=== PATIENT | male | born 1940 | race Caucasian/White ===

== ENCOUNTER → 2019-01-21 | Outpatient (CLI) | payer MEDICARE, OTHER ==
[~2019-01-21] MED LIST: AMLO5 PO; BENICAR PO; DIAZ10 PO; HYDACE5 PO; METCAR500 PO; NAPR500EC PO; OMEP20ER PO; OXYACE5T PO; PARI1 PO; PRED10 PO; STOMUL PO; TAMS.4ER PO
== END | disposition home or self-care (01) ==
LOC: LAB SHORT 12:02 → PLD 12:02
DX: C44.01 Basal cell carcinoma of skin of lip (principal)
CPT/HCPCS: 88305

== ENCOUNTER → 2022-10-04 | Outpatient (CLI) | payer MEDICARE, OTHER ==
[2022-10-04 13:54] LABS: PSA, %Free 19.9 %; PSA, Free 0.663 ng/mL
== END ==
LOC: LAB 12:21 → LAB SHORT 12:21
PROVIDERS: Physician Assistant
DX: Z85.46 Personal history of malignant neoplasm of prostate (principal)
CPT/HCPCS: 84153; 84154

== ENCOUNTER → 2022-10-07 | Outpatient (CLI) | payer MEDICARE, OTHER | END | disposition home or self-care (01) | LOC: PLD 08:05 → LAB SHORT 08:05 → LAB 08:05 | DX: B35.1 Tinea unguium (principal); L60.2 Onychogryphosis | CPT/HCPCS: 88305; 88312 ==

== ENCOUNTER 2023-11-08 19:37 | Inpatient (IN) | payer MEDICARE, OTHER ==
[~2023-11-08] VITALS: Ht 172.7 cm; Wt 70.3 kg
[2023-11-08 20:16] LABS: BASOPHILS ABSOLUTE AUTO 0.03 K/mm3 (0.00-0.23); BASOPHILS PERCENT AUTO 0 % (0-2); EOSINOPHILS PERCENT AUTO 0 % (0-6); Hematocrit 45.6 % (37.0-53.0); Hemoglobin 15.5 g/dL (13.5-17.5); IMMATURE GRAN ABSOLUTE AUTO 0.04 K/mm3 (0.00-0.10); IMMATURE GRAN PERCENT AUTO 0 % (0-1); LYMPHOCYTES ABSOLUTE AUTO 0.93 K/mm3 (0.84-5.20); LYMPHOCYTES PERCENT AUTO 9 % (21-46); MONOCYTES ABSOLUTE AUTO 0.98 K/mm3 (0.16-1.47); MONOCYTES PERCENT AUTO 9 % (4-13); Mean Corpuscular HGB 30.8 pg (26.0-34.0); Mean Corpuscular Volume 91 fL (80-100); Mean Platelet Volume 10.1 fL (9.1-12.4); NEUTROPHILS ABSOLUTE AUTO 8.91 K/mm3 (1.96-9.15); NEUTROPHILS PERCENT AUTO 82 % (41-73); Platelet Count 186 K/mm3 (150-400); RDW Coefficient Variation 14.6 % (11.7-14.2); RDW Standard Deviation 48.5 fL (35.1-46.3); Red Blood Cell Count 5.03 M/mm3 (4.30-5.90); White Blood Cell Count 10.89 K/mm3 (4.00-11.30)
[2023-11-08 20:34] LABS: Influenza A, PCR NEGATIVE (NEGATIVE); Influenza B, PCR NEGATIVE (NEGATIVE); Resp Syncytial Virus, PCR NEGATIVE (NEGATIVE)
[2023-11-08 20:48] LABS: Albumin, Blood 3.4 g/dL (3.4-5.0); Albumin/Globulin Ratio 0.8 (0.8-1.8); Bilirubin, Total 1.4 mg/dL (0.1-1.0); Bun/Creatinine Ratio 18.7 (12.0-20.0); Calcium, Blood 9.2 mg/dL (8.5-10.1); Creatinine, Blood 1.34 mg/dL (0.60-1.20); Potassium, Blood 4.7 mmol/L (3.5-5.5); Total Protein, Blood 7.4 g/dL (6.4-8.2)
[2023-11-08 20:58] LABS: SARS-Cov-2 (COVID-19) PCR, MMC POSITIVE (NEGATIVE)
[2023-11-08] MEDS ORDERED: Dexamethasone Sod Phos 10 MG/ML 1ML VIAL IV ONE (22:55)
[2023-11-08] MEDS ORDERED: Azithromycin 500 MG in NS 250 ML IV ONE (22:55)
[2023-11-08] MEDS ORDERED: CefTRIAXone Sodium 1,000 MG in NS 100 ML IV ONE (22:55)
[2023-11-09] VITALS (9 sets, daily range): BP systolic 88–123; BP diastolic 62–83
[2023-11-09] MEDS ORDERED: FLU VACC TS2024-25(6MOS UP)/PF 45 MCG/0.5 ML SYRINGE IM ONE (00:20)
[2023-11-09] MEDS ORDERED: Ondansetron HCl 2 MG / ML 2ML Vial IV PRN (00:25)
[2023-11-09] MEDS ORDERED: Acetaminophen 325 MG TABLET PO PRN (00:25)
[2023-11-09] MEDS ORDERED: Remdesivir (EUA) 200 MG in NS 250 ML IV ONE (00:30)
--- NOTE | 2023-11-09 01:30 | NUR ---
TRANSFER TO ICU PT ARRIVED TO ICU FROM MEDICAL FLOOR AFTER RAPID RESPONSE WAS CALLED FOR PT ON MEDICAL FLOOR. UPON ARRIVAL PT LETHARGIC, BUT RESPONDING TO PAIN AND SAYING "OW" AND ABLE TO FOLLOW COMMANDS SUCH HOLDING STILL FOR CVC PLACEMENT. PT'S FACE PURPLE/BLUE IN COLOR UPON ARRIVAL TO ICU. PT CONNECTED TO ZOLL, HR NOTED 100s. BP DIFFICULT TO OBTAIN D/T PT SHIVERING AND MOVEMENT. PIV TO LFA INFILTRATED, HOSPITALIST INSERTED CVC TO RIJ. LEVOPHED GTT INFUSING UPON ARRIVAL TO ICU, BUT PUT ON SB WHILE AWAITING CVC PLACEMENT D/T IV INFILTRATION. LEVOPHED RESTARTED IMMEDIATELY UPON CVC INSERTION AND XRAY CONFIRMATION, SEE FLOWSHEET. PT ON 6 L N/C UPON ARRIVAL TO ICU AND PLACED ON 15 L NONREBREATER. AFTER CVC PLACMENT TO RIJ AND PT ON 15 L NONBREATHER, PT'S COLOR OF FACE IMPROVED TO NORMAL TONE. PER HOSPITALIST'S VERBAL ORDER AT BEDSIDE, 1 AMP OF SODIUM BICARB GIVEN IVP AND 1 G OF CALCIUM CHLORIDE GIVEN SLOWLY OVER 10 MINUTES IVP. CVC TO RIJ OOZING SIGNIFICANTLY, SUTURES REINFORCED BY HOSPITALIST AND DRESSING CHANGED. MANUAL PRESSURE HELD CUMULATIVELY FOR 25 MINUTES. HOSPITALIST MADE AWARE OF LFA IV INFILTRATION, SC REGITINE INJECTED AROUND SITE AND PICTURES DOCUMENTED IN CHART. PT WENT TO CT FOR CT/PE STUDY AROUND 0115 AND TOLERATED TRANSPORT WELL. WHEN PT ARRIVED TO ICU THERE WAS CONCERN IF PT NEEDED TO BE INTUBATED. RSI MEDICATIONS PREPARED BY THIS RN BY HOSPITALIST'S VERBAL ORDER; 15 MG ETOMIDATE, 2 MG VERSED, 80 MG ROCURONIUM. PT ENDED UP NOT NEEDING TO BE INTUBATED SO RSI MEDICATIONS WASTED WITH ZULEIMA RN.
[2023-11-09] MEDS ORDERED: Sodium Bicarb 8.4% 50 mEq Syringe IV ONE (03:56)
[2023-11-09] MEDS ORDERED: Rocuronium Bromide 10 MG/ML 5ML Injection IV ONE (03:56)
[2023-11-09] MEDS ORDERED: Midazolam HCl 1MG / ML 2ML Vial IV ONE (03:56)
[2023-11-09] MEDS ORDERED: Calcium Chloride 10% 100 MG/ML 10ML Vial IV ONE (03:56)
[2023-11-09 05:38] LABS: BASOPHILS ABSOLUTE AUTO 0.02 K/mm3 (0.00-0.23); BASOPHILS PERCENT AUTO 0 % (0-2); EOSINOPHILS PERCENT AUTO 0 % (0-6); Hematocrit 43.8 % (37.0-53.0); Hemoglobin 14.5 g/dL (13.5-17.5); IMMATURE GRAN ABSOLUTE AUTO 0.02 K/mm3 (0.00-0.10); IMMATURE GRAN PERCENT AUTO 0 % (0-1); LYMPHOCYTES ABSOLUTE AUTO 0.52 K/mm3 (0.84-5.20); LYMPHOCYTES PERCENT AUTO 7 % (21-46); MONOCYTES ABSOLUTE AUTO 0.21 K/mm3 (0.16-1.47); MONOCYTES PERCENT AUTO 3 % (4-13); Mean Corpuscular HGB 30.5 pg (26.0-34.0); Mean Corpuscular HGB Conc 33.1 g/dL (31.5-36.5); Mean Corpuscular Volume 92 fL (80-100); Mean Platelet Volume 10.3 fL (9.1-12.4); NEUTROPHILS ABSOLUTE AUTO 6.76 K/mm3 (1.96-9.15); NEUTROPHILS PERCENT AUTO 90 % (41-73); Platelet Count 152 K/mm3 (150-400); RDW Coefficient Variation 14.6 % (11.7-14.2); RDW Standard Deviation 50.3 fL (35.1-46.3); Red Blood Cell Count 4.75 M/mm3 (4.30-5.90); White Blood Cell Count 7.53 K/mm3 (4.00-11.30)
[2023-11-09 06:12] LABS: Albumin, Blood 2.9 g/dL (3.4-5.0); Albumin/Globulin Ratio 0.8 (0.8-1.8); Bilirubin, Total 0.7 mg/dL (0.1-1.0); Bun/Creatinine Ratio 18.9 (12.0-20.0); Calcium, Blood 8.8 mg/dL (8.5-10.1); Creatinine, Blood 1.32 mg/dL (0.60-1.20); Globulin, Blood 3.7 g/dL (2.2-4.0); Potassium, Blood 4.7 mmol/L (3.5-5.5); Total Protein, Blood 6.6 g/dL (6.4-8.2)
[2023-11-09] MEDS ORDERED: Albuterol 2.5 MG/3 ML VIAL INH PRN (07:50)
[2023-11-09] MEDS ORDERED: dexAMETHasone 4 MG TAB PO SCH (09:00)
[2023-11-09] MEDS ORDERED: Metoprolol Tartrate 25 MG Tab PO SCH (09:00)
[2023-11-09] MEDS ORDERED: Lactobacil 2-S.Thermo-Bifido 1 1 Cap PO SCH (09:00)
[2023-11-09] MEDS ORDERED: Apixaban 5 MG Tab PO SCH (09:00)
--- NOTE | 2023-11-09 11:05 | NUR ---
NOTE: RECEIVED A CALL FROM PCU INSURANCE ADMINISTRATIVE ASSISTANT, ALEX AT AROUND 1056. PER MARK PATIENT HAD 8 BEATS RUN OF V-TACH. THIS RN ASSESS THE PATIENT, DENIES CP/PRESSURE, DIZZINESS, N/V BUT REPORTS SLIGHT SOB RESTING IN BED. VITALS SIGNS TAKEN; TEMP 97.2, RESP 20 BREATHS/MIN, AFIB HR 101 BPM, 92% ON 2L NC. NOTIFIED DR. MCKEON REGARDING THIS CONCERNED. NO NEW ORDERS AT THIS TIME.
--- NOTE | 2023-11-09 11:25 | NUR ---
NOTE: RECEIVED A CALL FROM PCU ALARM INSTALLER, ALEX AT 1119. PER MARK PATIENT HAD 5 BEATS RUN OF V-TACH. THIS RN ASSESS PATIENT, CONTINUES TO REPORTS NO CP/PRESSURE OR DIZZINESS AT THIS TIME. NOTIFIED DR. MCKEON, RECEIVED ORDER TO DO REPEAT LAB FOR BMP, MAG AND PHOS NOW.
[2023-11-09 12:43] LABS: Bun/Creatinine Ratio 22.6 (12.0-20.0); Calcium, Blood 8.7 mg/dL (8.5-10.1); Creatinine, Blood 1.33 mg/dL (0.60-1.20); Magnesium, Blood 1.8 mg/dL (1.6-2.4); Phosphorus, Blood 2.8 mg/dL (2.5-4.9); Potassium, Blood 4.5 mmol/L (3.5-5.5)
--- NOTE | 2023-11-09 18:06 | NUR ---
SHIFT SUMMARY: PATIENT A/OX3, PLEASANT AND COOPERATIVE c CARE. PATIENT DENIES CP/PRESSURE, N/V AND DIZZINESS. PATIENT HAD A COUPLE EPISODE OF VTACH (SEE AM NOTE), NO EVENTS SINCE 1119, AFIB HR IN THE LOW 100'S BPM. PATIENT STARTED ON ELIQUIS THIS AM PER ORDER. ECHO'S DONE THIS PM c RESULT. PATIENT REPORTS BREATHING HAS IMPROVED, STILL ON 2L O2 SATTING 90-94%. PATIENT HAS GREAT APPETITE, CONTINENT OF BOWEL/BLADDER, AMBULATES TO BATHROOM INDEPENDENTLY T/O SHIFT. PATIENT USES CALL LIGHT APPROPRIATELY AND ABLE TO MAKE NEEDS KNOWN. CALL LIGHT IN REACH.
[2023-11-09] MEDS ORDERED: CefTRIAXone Sodium 1,000 MG in NS 100 ML IV SCH (21:00)
[2023-11-09] MEDS ORDERED: Azithromycin 500 MG in NS 250 ML IV SCH (21:00)
[2023-11-09] MEDS ORDERED: NS 1,000 ML IV ONE (23:14)
[2023-11-09 23:24] LABS: Base Excess Venous -9.6 mmol/L; Bicarbonate Venous 16.7 mmol/L (24.0-30.0); PCO2 Venous 35.3 mmHg (38-42); pH Blood Venous 7.29 (7.34-7.37)
[2023-11-09 23:27] LABS: BASOPHILS ABSOLUTE AUTO 0.02 K/mm3 (0.00-0.23); BASOPHILS PERCENT AUTO 0 % (0-2); EOSINOPHILS PERCENT AUTO 0 % (0-6); Hemoglobin 14.7 g/dL (13.5-17.5); IMMATURE GRAN ABSOLUTE AUTO 0.05 K/mm3 (0.00-0.10); IMMATURE GRAN PERCENT AUTO 0 % (0-1); LYMPHOCYTES ABSOLUTE AUTO 1.58 K/mm3 (0.84-5.20); LYMPHOCYTES PERCENT AUTO 14 % (21-46); MONOCYTES ABSOLUTE AUTO 0.96 K/mm3 (0.16-1.47); MONOCYTES PERCENT AUTO 8 % (4-13); Mean Corpuscular HGB 30.5 pg (26.0-34.0); Mean Corpuscular HGB Conc 32.7 g/dL (31.5-36.5); Mean Corpuscular Volume 93 fL (80-100); Mean Platelet Volume 10.5 fL (9.1-12.4); NEUTROPHILS ABSOLUTE AUTO 8.81 K/mm3 (1.96-9.15); NEUTROPHILS PERCENT AUTO 77 % (41-73); Platelet Count 173 K/mm3 (150-400); RDW Coefficient Variation 14.8 % (11.7-14.2); RDW Standard Deviation 51.4 fL (35.1-46.3); Red Blood Cell Count 4.82 M/mm3 (4.30-5.90); White Blood Cell Count 11.42 K/mm3 (4.00-11.30)
[2023-11-09 23:47] LABS: Albumin, Blood 2.8 g/dL (3.4-5.0); Albumin/Globulin Ratio 0.8 (0.8-1.8); Bilirubin, Total 0.3 mg/dL (0.1-1.0); Bun/Creatinine Ratio 26.8 (12.0-20.0); Calcium, Blood 7.7 mg/dL (8.5-10.1); Creatinine, Blood 1.53 mg/dL (0.60-1.20); Globulin, Blood 3.5 g/dL (2.2-4.0); Potassium, Blood 4.2 mmol/L (3.5-5.5); Total Protein, Blood 6.3 g/dL (6.4-8.2)
[2023-11-09] MEDS ORDERED: Phentolamine Mesylate 5 MG/2 ML Vial SC ONE (23:50)
[2023-11-10] VITALS (51 sets, daily range): BP systolic 77–143; BP diastolic 29–96
[2023-11-10] MEDS ORDERED: Sodium Bicarb 8.4% Inj 100 MEQ in Sodium Chloride 0.45% 1,000 ML IV SCH (00:15)
[2023-11-10] MEDS ORDERED: Heparin Sodium,Porcine/0.5 NS 500 ML IV SCH (00:20)
[2023-11-10 00:51] LABS: International Normalized Ratio 2.1; Prothrombin Time Results 21.3 Sec (9.7-11.5)
[2023-11-10 02:55] LABS: BASOPHILS ABSOLUTE AUTO 0.02 K/mm3 (0.00-0.23); BASOPHILS PERCENT AUTO 0 % (0-2); EOSINOPHILS PERCENT AUTO 0 % (0-6); Hematocrit 43.7 % (37.0-53.0); Hemoglobin 14.7 g/dL (13.5-17.5); IMMATURE GRAN PERCENT AUTO 1 % (0-1); LYMPHOCYTES ABSOLUTE AUTO 1.07 K/mm3 (0.84-5.20); LYMPHOCYTES PERCENT AUTO 7 % (21-46); MONOCYTES ABSOLUTE AUTO 1.15 K/mm3 (0.16-1.47); MONOCYTES PERCENT AUTO 8 % (4-13); Mean Corpuscular HGB 30.9 pg (26.0-34.0); Mean Corpuscular HGB Conc 33.6 g/dL (31.5-36.5); Mean Corpuscular Volume 92 fL (80-100); Mean Platelet Volume 10.3 fL (9.1-12.4); NEUTROPHILS ABSOLUTE AUTO 12.48 K/mm3 (1.96-9.15); NEUTROPHILS PERCENT AUTO 84 % (41-73); Platelet Count 176 K/mm3 (150-400); RDW Coefficient Variation 14.8 % (11.7-14.2); RDW Standard Deviation 50.9 fL (35.1-46.3); Red Blood Cell Count 4.75 M/mm3 (4.30-5.90); White Blood Cell Count 14.82 K/mm3 (4.00-11.30)
[2023-11-10 03:10] LABS: Bun/Creatinine Ratio 28.5 (12.0-20.0); Calcium, Blood 8.8 mg/dL (8.5-10.1); Creatinine, Blood 1.58 mg/dL (0.60-1.20); Potassium, Blood 4.6 mmol/L (3.5-5.5)
--- NOTE | 2023-11-10 03:43 | NUR ---
PT UPDATE PT PLACED ON CPAP PER HOSPITALIST ORDER AND PT TOLERATING WELL, O2 SATS > 90%. LUNG GATES CLEAR/DIM. CARDIAC MONITORING REFLECTS AFIB, HR 90s-100s. PT'S LEVOPHED ON SB, MAP > 65. PT'S SON AT [facility], HAS BEEN CONTINUOUSLY UPDATED. PT A/O x3, NEEDING REORIENTATION OF WHAT HAPPENED. CVC TO TNJ SL AT THIS TIME. L ARM ELEVATED WITH PILLOW.
[2023-11-10] MEDS ORDERED: NS 1,000 ML IV SCH (05:20)
--- NOTE | 2023-11-10 05:21 | NUR ---
SHIFT SUMMARY NO ACUTE CHANGES SINCE PREVIOUS NURSE NOTE. PT A/O x3, NEEDING REORIENTATION OF SITUATION. SON REMAINED AT BEDSIDE AFTER PT'S ARRIVAL TO ICU. CPAP 10, FiO2 50%, PT TOLERATING WELL. O2 SATS > 90%. CARDIAC MONITORING REFLECTS AFIB, HR 100s AT THIS TIME. LEVOPHED REMAINS ON SB, MAP > 65. CVC TO [facility] SL.
--- NOTE | 2023-11-10 07:54 | NUR ---
RAPID RESPONSE [phone] ON 11/09/23 PLEASE SEE A DETAILED DESCRIPTION OF EVENTS LEADING UP TO SECURITY OPERATIONS MANAGER AND DURING SECURITY OPERATIONS MANAGER IN THE SECURITY OPERATIONS MANAGER INITIATION INTERVENTION FLOWSHEET.
--- NOTE | 2023-11-10 09:47 | NUR ---
AM NOTE... ASSUMED CARE OF PT AT 0700, PT IS A&Ox3 WITH SOME FORGETFULNESS. PT WAS ON CPAP AT 10 AND 50% WITH O2 SATS>95% L/S CLEAR AND DIM T/O. PT WAS SWITCHED OVER TO NC AT 5L WITH O2 SATS>92%. PT'S RR IS EVEN BUT SHALLOW AT 18-22. PT IS IN AFIB IN THE 100'S BP IS STABLE WITH MAPS>65. TRACE EDEMA IS NOTED TO HIS BLE. BT PRESENT AND HYPOACTIVE, ABD IS SLIGHLTY DISTENTED BUT SOFT AND NONTENDER TO PALPATION. DURING THIS ASSESSMENT THIS RN WAS HELPING TO REPOSITION THE PT WHEN THE PT'S HEAD WAS LAYING BACK THE PT'S WHOLE HEAD TURNED DUSKY RED AND HIS EARS TURND DARK PURPLE, PT WAS SOB WITH LABORED BREATHS, O2 SATS DID NOT DROP DURING THIS TIME, PT'S HR INCREASED FROM THE LOW 100'S TO 120'S. PT'S HEAD WAS TURNED BACK UP AND THE PT'S COLOR RETURNED TO NORMAL. WILL CONTINUE TO MONITOR.
[2023-11-10] MEDS ORDERED: Remdesivir (EUA) 100 MG in NS 250 ML IV SCH (12:00)
--- NOTE | 2023-11-10 16:24 | NUR ---
Spiritual care visit conducted. Patient is lying in bed and alert, his son is Calixto Thorpe is bedside. The patient talks at length about his health history, his Orthodox art, his family and his hopes that he has turned a corner for the better. While we are talking the patient's dtr called. The patient talked with her until a procedure was needed to be performed. So I talked with the Calixto Thorpe and he shares personal stories and struggles. I normalized his experience, reinforced helpful attitudes and practices and provided therapeutic listening and prayer.
--- NOTE | 2023-11-10 17:49 | NUR ---
TRANSFER NOTE PT ARRIVE TO ROOM @ APPROX 1646. PT SELF TRANSFERED FROM ICU BED TO PCU BED, GAIT STEADY, DENIED ANY DIZZINESS. PT ALERT AND ORIENTED X 4, DOES NOT REMEMBER TO CALL SO BED ALARM AND CHAIR ALARM ARE IN PLACE, PT HARD OF HEARING AND HAS DIFFICULTY WITH VISION. LUNGS SOUND DIM BLL, SPO2 >94% ON RA, NEEDED SOME OXYGEN SUPPORT OF 2L NC WHILE EATING, PT WILLING TO WEAR CPAP AT NIGHT IF NEEDED. PT WALKED TO BATHROOM SBA WITH HAND CLIPPER, PT REPORTED BM WHILE IN BATHROOM. BLADDER SCAN COMPLETED FOR HX OF BPH, 170 IN BLADDER. INFALTRATON OF LEVOPHED IN RIGHT AC IS SOFT, BRUSIED, LOOKS IMPROVED FROM CHARTED PHOTOS, BLE EDEMA 2+. SON IS AT BEDSIDE. BED LOWEST POSTION, CALL LIGHT IN REACH, AWAITING TO GIVE REPORT TO ONCOMMING RN.
[2023-11-10] MEDS ORDERED: Ticagrelor 90 MG TABLET PO SCH (21:00)
--- NOTE | 2023-11-10 22:00 | NUR ---
SHIFT UPDATE: Patient called this at 2145 RN saying he didn't "feel well". When prompted to explain further, he said he feels the way he did last night prior to the rapid response and was having a hard time breathing. VSS at this time- BP 108/63 and O2 95% on 2LNC. RT notified, placed patient on the CPAP at this time as ordered- PRN. Patient appears to be apprehensive of the medical plan at this time due to his experience last night, education reinforced. Some anxiety may be involved, will encourage the patient to rest and let the CPAP work while promoting a restful environment.
--- NOTE | 2023-11-10 23:09 | NUR ---
SHIFT UPDATE- Patient back on the nasal cannula at this time- informed this RN that he feels less SHOB and the noise from the CPAP is keeping him awake. CPAP placed on standby at this time in case patient's condition changes again. Vital signs continue to be stable. currently on 2LNC.
[2023-11-10] MEDS ORDERED: Melatonin 3 MG Tab PO PRN (23:31)
[2023-11-10] MEDS ORDERED: HyDROXyzine HCl 25 MG Tab PO PRN (23:32)
[2023-11-11 04:12] VITALS: BP 115/82
[2023-11-11 04:39] LABS: BASOPHILS ABSOLUTE AUTO 0.02 K/mm3 (0.00-0.23); BASOPHILS PERCENT AUTO 0 % (0-2); EOSINOPHILS PERCENT AUTO 0 % (0-6); Hematocrit 44.3 % (37.0-53.0); IMMATURE GRAN ABSOLUTE AUTO 0.16 K/mm3 (0.00-0.10); IMMATURE GRAN PERCENT AUTO 1 % (0-1); LYMPHOCYTES PERCENT AUTO 7 % (21-46); MONOCYTES ABSOLUTE AUTO 0.74 K/mm3 (0.16-1.47); MONOCYTES PERCENT AUTO 4 % (4-13); Mean Corpuscular HGB 30.9 pg (26.0-34.0); Mean Corpuscular HGB Conc 33.9 g/dL (31.5-36.5); Mean Corpuscular Volume 91 fL (80-100); Mean Platelet Volume 10.7 fL (9.1-12.4); NEUTROPHILS ABSOLUTE AUTO 16.11 K/mm3 (1.96-9.15); NEUTROPHILS PERCENT AUTO 88 % (41-73); Platelet Count 189 K/mm3 (150-400); RDW Coefficient Variation 14.9 % (11.7-14.2); RDW Standard Deviation 50.4 fL (35.1-46.3); Red Blood Cell Count 4.85 M/mm3 (4.30-5.90); White Blood Cell Count 18.23 K/mm3 (4.00-11.30)
--- NOTE | 2023-11-11 04:56 | NUR ---
END OF SHIFT SUMMARY: Patient required the CPAP for a short time following antibiotic administration, noteable pleural effusions on XR the night prior, MD mentioned possibly starting diuresis once the patient's BP stabilizes. BP stable overnight. Was able to wean back down to 2LNC. Currently resting comfortably in bed. Controlled AFIB on tele all night in the 90-100s. Denies pain, getting OOB with SBA. Occasionally forgetful and some anxiety when he gets SHob, bed alarm activated. On remdesivir dose 02/13, antibiotics for RLL PNA. ERIC powerglide WNL. Prior LFA IV infiltration improved, bruising present due to being on eliquis. PRN atarax effective for anxiety overnight. Patient may benefit from a stronger sleep aid and something PRN for cough, otherwise he states he is beginning to feel better.
[2023-11-11 06:43] LABS: Albumin/Globulin Ratio 0.8 (0.8-1.8); Bilirubin, Total 0.4 mg/dL (0.1-1.0); Bun/Creatinine Ratio 30.1 (12.0-20.0); Calcium, Blood 9.1 mg/dL (8.5-10.1); Creatinine, Blood 1.63 mg/dL (0.60-1.20); Globulin, Blood 3.7 g/dL (2.2-4.0); Potassium, Blood 4.9 mmol/L (3.5-5.5); Total Protein, Blood 6.7 g/dL (6.4-8.2)
[2023-11-11 11:44] VITALS: BP 130/80
--- NOTE | 2023-11-11 12:16 | NUR ---
AT BEDSIDE: DR. VELARDE ROUNDED ON PATIENT AND STATED WE WILL CONTINUE TO AND POSSIBLY FRIDAY DISCHARGE. NOTIFIED ABOUT SCROTOM PAIN PATIENT WAS HAVING, HE LOOKED AT IT AND ORDERED A CONSULT FOR SURGICAL. PT FELT NAUSEAUS WHEN LAYING ON BACK AND DR. VELARDE ORDERED ZOFRAN TO BE GIVEN.
[2023-11-11] MEDS ORDERED: Flonase 0.05% N16 GM (13:56)
[2023-11-11] MEDS ORDERED: Ketoconazole120 ML TOP (13:57)
[2023-11-11 16:41] VITALS: BP 110/68
--- NOTE | 2023-11-11 16:46 | NUR ---
END OF SHIFT SUMMARY: PT IS A&0X4 AND COOPERATIVE WITH HIS CARE. IS ODD AND ANSWERS QUESTIONS APPROPRIATELY BUT DOES ANSWER ALMOST HESITANTLY OR WITH A QUESTIONING TONE. SATTING >90% ON ROOM AIR. ON TELE SHOWING AFIB WITH RATE BEETWEEN 100-112. HAD A CONCERN ABOUT HIS RIGHT SCROTOM WITH 7/10 PAIN, DOCTOR VELARDE WAS NOTIFIED AND A CONSULT WAS PLACED TO SURGICAL. SURGICAL CAME AND PER NOTE NO SURGEY WILL BE NEEDED. PT DENIED NEEDING ANY PAIN MEDICATIONS. DID GET ZOFRAN AFTER LAYING FLAT AND AFTER DR. VELARDE WAS PUTTING PRESSURE ON HIS SCROTOM. PT REPORTED HE FELT LIKE HE WAS GOING TO THROW UP AND WAS BETTER AFTER BEING GIVEN ZOFRAN. SON CAME TO VISIT AND PATIENT HAS JUST BEEN WALKING IN ROOM AND CHATTING WITH HIM. WILL REPORT TO ONCOMING CHAIN OFFBEARER.
[2023-11-11 20:34] VITALS: BP 104/74
[2023-11-12 05:01] VITALS: BP 105/71
--- NOTE | 2023-11-12 05:45 | NUR ---
SHIFT SUMMARY RECEIVED PT FROM U 0030. PT ON RA, NO RESPIRATORY DISTRESS NOTED. TELE SHOWING AFIB. PT SLEPT MOST OF THE NIGHT. ORIENTED TO ROOM, CALL LIGHT. SIDERAILS UP X 2, BED ALARM ON UNTIL PT MORE AWAKE. PT SOMEWHAT ANXIOUS, BUT COOPERATIVE WITH CARE. POWERGLIDE FLUSHES EASILY, BUT THERE IS NO BLOOD RETURN.
[2023-11-12 05:59] LABS: BASOPHILS ABSOLUTE AUTO 0.02 K/mm3 (0.00-0.23); BASOPHILS PERCENT AUTO 0 % (0-2); EOSINOPHILS PERCENT AUTO 0 % (0-6); Hematocrit 44.8 % (37.0-53.0); Hemoglobin 14.6 g/dL (13.5-17.5); IMMATURE GRAN ABSOLUTE AUTO 0.12 K/mm3 (0.00-0.10); IMMATURE GRAN PERCENT AUTO 1 % (0-1); LYMPHOCYTES ABSOLUTE AUTO 1.27 K/mm3 (0.84-5.20); LYMPHOCYTES PERCENT AUTO 9 % (21-46); MONOCYTES ABSOLUTE AUTO 0.77 K/mm3 (0.16-1.47); MONOCYTES PERCENT AUTO 5 % (4-13); Mean Corpuscular HGB 30.1 pg (26.0-34.0); Mean Corpuscular HGB Conc 32.6 g/dL (31.5-36.5); Mean Corpuscular Volume 92 fL (80-100); NEUTROPHILS ABSOLUTE AUTO 12.71 K/mm3 (1.96-9.15); NEUTROPHILS PERCENT AUTO 85 % (41-73); Platelet Count 189 K/mm3 (150-400); RDW Coefficient Variation 14.9 % (11.7-14.2); RDW Standard Deviation 50.8 fL (35.1-46.3); Red Blood Cell Count 4.85 M/mm3 (4.30-5.90); White Blood Cell Count 14.89 K/mm3 (4.00-11.30)
[2023-11-12 06:49] LABS: Albumin, Blood 2.9 g/dL (3.4-5.0); Albumin/Globulin Ratio 0.9 (0.8-1.8); Bilirubin, Total 0.4 mg/dL (0.1-1.0); Bun/Creatinine Ratio 33.1 (12.0-20.0); Calcium, Blood 8.9 mg/dL (8.5-10.1); Creatinine, Blood 1.48 mg/dL (0.60-1.20); Globulin, Blood 3.4 g/dL (2.2-4.0); Potassium, Blood 4.7 mmol/L (3.5-5.5); Total Protein, Blood 6.3 g/dL (6.4-8.2)
[2023-11-12 08:27] VITALS: BP 107/81
[2023-11-12] MEDS ORDERED: DEXA2 PO (14:27)
[2023-11-12] MEDS ORDERED: TICA90TA PO (14:28)
[2023-11-12] MEDS ORDERED: METO25 PO (14:28)
[2023-11-12] MEDS ORDERED: ALBU90OI6 INH (14:29)
[2023-11-12] MEDS ORDERED: CEFD300 PO (14:29)
--- NOTE | 2023-11-12 15:34 | NUR ---
DISCHARGE: PT D/C @4842 INDEPENDENTLY WITH FAMILY. MEDICATIONS FAXED TO [facility]. TELE SENT BACK. POWERGLIDE REMOVED BY THIS RN W/O COMPLICATIONS. PT AWARE TO MAKE FOLLOW-UP APPOINTMENT WITH PCP WITHIN 1-2 WEEKS. NEW MEDICATIONS DISCUSSED IN DETAIL WITH PT AND FAMILY. NO QUESTIONS AT TIME OF D/C.
--- NOTE | 2023-11-12 17:38 | NUR ---
SPOKE WITH DR. VELARDE ABOUT CHANGING PT DISCHARGE MEDICATIONS. PT TO STOP BRILINTA AND START ELIQUS 5MG BID. MEDICAION CALLED INTO PHARMACY. CALLED PT SON WHO HELPS PT WITH MEDICATIONS AND UPDATED WITH STOP AND START OF NEW MEDICATION.
== END 2023-11-12 15:24 | disposition home or self-care (01) | DRG 177 ==
LOC: ER 19:37 → MEDS 19:38 → ICUE 11-09 14:18 → PCU 11-09 14:18 → MEDS 11-09 22:36 → ICUE 11-09 23:36 → PCU 11-10 17:01 → MEDS 11-12 00:28 → ENPENDDIS 11-12 13:30 → MEDS 11-12 15:24
PROVIDERS: Emergency Medicine; Internal Medicine; ADMIT Student in an Organized Health Care Education/Training Program
PROC: XW033E5 Introduction of Remdesivir Anti-infective into Peripheral Vein, Percutaneous Approach, New Technology Group 5 (ICD-10-PCS; 2023-11-09)
PROC: 3E0333Z Introduction of Anti-inflammatory into Peripheral Vein, Percutaneous Approach (ICD-10-PCS; 2023-11-09)
PROC: 5A09357 Assistance with Respiratory Ventilation, Less than 24 Consecutive Hours, Continuous Positive Airway Pressure (ICD-10-PCS; 2023-11-09)
PROC: 3E033XZ Introduction of Vasopressor into Peripheral Vein, Percutaneous Approach (ICD-10-PCS; 2023-11-09)
PROC: 02HV33Z Insertion of Infusion Device into Superior Vena Cava, Percutaneous Approach (ICD-10-PCS; principal; 2023-11-10)
DX: U07.1 COVID-19 (principal); J12.82 Pneumonia due to coronavirus disease 2019; J96.01 Acute respiratory failure with hypoxia; I48.91 Unspecified atrial fibrillation; K40.90 Unilateral inguinal hernia, without obstruction or gangrene, not specified as recurrent; I95.9 Hypotension, unspecified; N40.0 Benign prostatic hyperplasia without lower urinary tract symptoms; M54.9 Dorsalgia, unspecified; G89.29 Other chronic pain; N18.31 Chronic kidney disease, stage 3a; K21.9 Gastro-esophageal reflux disease without esophagitis; I12.9 Hypertensive chronic kidney disease with stage 1 through stage 4 chronic kidney disease, or unspecified chronic kidney disease; M19.90 Unspecified osteoarthritis, unspecified site; Z85.038 Personal history of other malignant neoplasm of large intestine; Z85.46 Personal history of malignant neoplasm of prostate; Z88.8 Allergy status to other drugs, medicaments and biological substances; Z79.899 Other long term (current) drug therapy; Z79.891 Long term (current) use of opiate analgesic; Z98.890 Other specified postprocedural states; Z90.49 Acquired absence of other specified parts of digestive tract; Z89.111 Acquired absence of right hand
CPT/HCPCS: 0241U; 36415; 36556; 71045; 71046; 71260; 80048; 80053; 82330; 82803; 82947; 83605; 83735; 83880; 84100; 84145; 84484; 85025; 85610; 85730; 87040; 87070; 87205; 93005; 93010; 93306; 94640; 94660; 94664; 94760; 94762; 96365; 96366-59; 96368; 96375; 96375-59; 99285-25; A9270; C1751; G0378; J0248; J0456; J0696; J1100; J1644; J2250; J2405; J2760; J7030; J7050; Q9967

== ENCOUNTER 2024-01-19 18:21 | Emergency (ER) | payer MEDICARE, OTHER ==
[~2024-01-19] VITALS: Ht 172.7 cm; Wt 68.0 kg
[~2024-01-19 18:21] MED LIST changes: +ALBU90OI6 INH; +CEFD300 PO; +DEXA2 PO; +Flonase 0.05% N16 GM; +Ketoconazole120 ML TOP; +METO25 PO; +TICA90TA PO
[2024-01-19 19:50] LABS: BASOPHILS ABSOLUTE AUTO 0.02 K/mm3 (0.00-0.23); BASOPHILS PERCENT AUTO 0 % (0-2); EOSINOPHILS PERCENT AUTO 0 % (0-6); Hematocrit 48.5 % (37.0-53.0); Hemoglobin 16.4 g/dL (13.5-17.5); IMMATURE GRAN ABSOLUTE AUTO 0.06 K/mm3 (0.00-0.10); IMMATURE GRAN PERCENT AUTO 1 % (0-1); LYMPHOCYTES ABSOLUTE AUTO 0.84 K/mm3 (0.84-5.20); LYMPHOCYTES PERCENT AUTO 16 % (21-46); MONOCYTES ABSOLUTE AUTO 0.92 K/mm3 (0.16-1.47); MONOCYTES PERCENT AUTO 17 % (4-13); Mean Corpuscular HGB 31.1 pg (26.0-34.0); Mean Corpuscular HGB Conc 33.8 g/dL (31.5-36.5); Mean Corpuscular Volume 92 fL (80-100); Mean Platelet Volume 10.7 fL (9.1-12.4); NEUTROPHILS ABSOLUTE AUTO 3.47 K/mm3 (1.96-9.15); NEUTROPHILS PERCENT AUTO 65 % (41-73); Platelet Count 172 K/mm3 (150-400); RDW Coefficient Variation 14.1 % (11.7-14.2); RDW Standard Deviation 48.1 fL (35.1-46.3); Red Blood Cell Count 5.28 M/mm3 (4.30-5.90); White Blood Cell Count 5.31 K/mm3 (4.00-11.30)
[2024-01-19 20:29] LABS: Influenza B, PCR NEGATIVE (NEGATIVE); Resp Syncytial Virus, PCR NEGATIVE (NEGATIVE); SARS-Cov-2 (COVID-19) PCR, MMC NEGATIVE (NEGATIVE)
[2024-01-19 20:53] LABS: Albumin, Blood 3.5 g/dL (3.4-5.0); Albumin/Globulin Ratio 0.8 (0.8-1.8); Bilirubin, Total 0.7 mg/dL (0.1-1.0); Calcium, Blood 10.2 mg/dL (8.5-10.1); Creatinine, Blood 1.61 mg/dL (0.60-1.20); Globulin, Blood 4.3 g/dL (2.2-4.0); Potassium, Blood 4.4 mmol/L (3.5-5.5); Total Protein, Blood 7.8 g/dL (6.4-8.2)
[2024-01-19 21:03] LABS: Influenza A, PCR POSITIVE (NEGATIVE)
[2024-01-19] MEDS ORDERED: Metoprolol Tartrate 25 MG Tab PO ONE (21:35)
[2024-01-19] MEDS ORDERED: Oseltamivir Phosphate 75 MG Cap PO ONE (22:15)
[2024-01-19 22:16] VITALS: BP 133/77
[2024-01-19] MEDS ORDERED: OSEL75CA PO (22:26)
== END 2024-01-19 22:45 | disposition home or self-care (01) ==
LOC: ER 18:21
PROVIDERS: Student in an Organized Health Care Education/Training Program
DX: J10.1 Influenza due to other identified influenza virus with other respiratory manifestations (principal); Z88.8 Allergy status to other drugs, medicaments and biological substances; Z79.899 Other long term (current) drug therapy
CPT/HCPCS: 0241U; 71046; 80053; 83690; 85025; 93005; 93010; 99284-25; A9270

== ENCOUNTER 2024-01-22 16:06 | Emergency (ER) | payer MEDICARE, OTHER ==
[~2024-01-22] VITALS: Ht 172.7 cm; Wt 68.0 kg
[~2024-01-22 16:06] MED LIST changes: +OSEL75CA PO
[2024-01-22 17:06] LABS: BASOPHILS ABSOLUTE AUTO 0.02 K/mm3 (0.00-0.23); BASOPHILS PERCENT AUTO 0 % (0-2); EOSINOPHILS ABSOLUTE AUTO 0.02 K/mm3 (0.00-0.68); EOSINOPHILS PERCENT AUTO 0 % (0-6); Hematocrit 47.8 % (37.0-53.0); Hemoglobin 16.1 g/dL (13.5-17.5); IMMATURE GRAN ABSOLUTE AUTO 0.03 K/mm3 (0.00-0.10); IMMATURE GRAN PERCENT AUTO 1 % (0-1); LYMPHOCYTES ABSOLUTE AUTO 1.21 K/mm3 (0.84-5.20); LYMPHOCYTES PERCENT AUTO 23 % (21-46); MONOCYTES ABSOLUTE AUTO 0.79 K/mm3 (0.16-1.47); MONOCYTES PERCENT AUTO 15 % (4-13); Mean Corpuscular HGB Conc 33.7 g/dL (31.5-36.5); Mean Corpuscular Volume 92 fL (80-100); Mean Platelet Volume 11.1 fL (9.1-12.4); NEUTROPHILS PERCENT AUTO 61 % (41-73); Platelet Count 148 K/mm3 (150-400); RDW Coefficient Variation 13.7 % (11.7-14.2); RDW Standard Deviation 46.7 fL (35.1-46.3); White Blood Cell Count 5.37 K/mm3 (4.00-11.30)
[2024-01-22 17:25] LABS: Albumin, Blood 3.1 g/dL (3.4-5.0); Albumin/Globulin Ratio 0.8 (0.8-1.8); Bilirubin, Total 0.5 mg/dL (0.1-1.0); Bun/Creatinine Ratio 15.4 (12.0-20.0); Creatinine, Blood 1.56 mg/dL (0.60-1.20); Magnesium, Blood 1.9 mg/dL (1.6-2.4); Potassium, Blood 4.4 mmol/L (3.5-5.5); Total Protein, Blood 7.1 g/dL (6.4-8.2)
[2024-01-22 20:33] VITALS: BP 112/68
== END 2024-01-22 20:33 | disposition home or self-care (01) ==
LOC: ER 16:06
PROVIDERS: Physician Assistant
DX: J11.1 Influenza due to unidentified influenza virus with other respiratory manifestations (principal); R53.1 Weakness; Z79.51 Long term (current) use of inhaled steroids; Z79.899 Other long term (current) drug therapy; Z88.8 Allergy status to other drugs, medicaments and biological substances
CPT/HCPCS: 71046; 80053; 83735; 84145; 85025; 93005; 93010; 99285-25

== ENCOUNTER 2024-02-28 11:10 | Inpatient (IN) | payer MEDICARE, OTHER ==
[~2024-02-28] VITALS: Ht 172.7 cm; Wt 72.6 kg
[2024-02-28 12:08] LABS: Influenza A, PCR NEGATIVE (NEGATIVE); Influenza B, PCR NEGATIVE (NEGATIVE); Resp Syncytial Virus, PCR NEGATIVE (NEGATIVE); SARS-Cov-2 (COVID-19) PCR, MMC NEGATIVE (NEGATIVE)
[2024-02-28 12:11] LABS: BASOPHILS ABSOLUTE AUTO 0.04 K/mm3 (0.00-0.23); BASOPHILS PERCENT AUTO 0 % (0-2); EOSINOPHILS ABSOLUTE AUTO 0.11 K/mm3 (0.00-0.68); EOSINOPHILS PERCENT AUTO 1 % (0-6); Hematocrit 50.3 % (37.0-53.0); Hemoglobin 16.3 g/dL (13.5-17.5); IMMATURE GRAN ABSOLUTE AUTO 0.06 K/mm3 (0.00-0.10); IMMATURE GRAN PERCENT AUTO 0 % (0-1); LYMPHOCYTES ABSOLUTE AUTO 2.68 K/mm3 (0.84-5.20); LYMPHOCYTES PERCENT AUTO 20 % (21-46); MONOCYTES ABSOLUTE AUTO 1.22 K/mm3 (0.16-1.47); MONOCYTES PERCENT AUTO 9 % (4-13); Mean Corpuscular HGB 30.5 pg (26.0-34.0); Mean Corpuscular HGB Conc 32.4 g/dL (31.5-36.5); Mean Corpuscular Volume 94 fL (80-100); Mean Platelet Volume 10.4 fL (9.1-12.4); NEUTROPHILS ABSOLUTE AUTO 9.43 K/mm3 (1.96-9.15); NEUTROPHILS PERCENT AUTO 70 % (41-73); Platelet Count 230 K/mm3 (150-400); RDW Coefficient Variation 15.4 % (11.7-14.2); RDW Standard Deviation 52.4 fL (35.1-46.3); Red Blood Cell Count 5.34 M/mm3 (4.30-5.90); White Blood Cell Count 13.54 K/mm3 (4.00-11.30)
[2024-02-28] MEDS ORDERED: ELIQUIS5 M3 PO (12:24)
[2024-02-28 12:31] LABS: Albumin, Blood 3.6 g/dL (3.4-5.0); Albumin/Globulin Ratio 0.9 (0.8-1.8); Bun/Creatinine Ratio 19.8 (12.0-20.0); Calcium, Blood 9.8 mg/dL (8.5-10.1); Creatinine, Blood 1.21 mg/dL (0.60-1.20); Globulin, Blood 3.9 g/dL (2.2-4.0); Potassium, Blood 4.8 mmol/L (3.5-5.5); Total Protein, Blood 7.5 g/dL (6.4-8.2)
[2024-02-28] MEDS ORDERED: CefTRIAXone Sodium 1,000 MG in NS 50 ML IV ONE (12:50)
[2024-02-28] MEDS ORDERED: Doxycycline Hyclate 100 MG TAB PO ONE (12:50)
[2024-02-28] MEDS ORDERED: NS 1,000 ML IV SCH (12:55)
[2024-02-28] MEDS ORDERED: Ondansetron 4 MG TAB PO PRN (13:25)
[2024-02-28] MEDS ORDERED: FLU VACC TS2024-25(6MOS UP)/PF 45 MCG/0.5 ML SYRINGE IM ONE (13:25)
[2024-02-29 03:36] LABS: BASOPHILS ABSOLUTE AUTO 0.04 K/mm3 (0.00-0.23); BASOPHILS PERCENT AUTO 0 % (0-2); EOSINOPHILS ABSOLUTE AUTO 0.09 K/mm3 (0.00-0.68); EOSINOPHILS PERCENT AUTO 1 % (0-6); Hematocrit 44.1 % (37.0-53.0); Hemoglobin 14.4 g/dL (13.5-17.5); IMMATURE GRAN ABSOLUTE AUTO 0.06 K/mm3 (0.00-0.10); IMMATURE GRAN PERCENT AUTO 1 % (0-1); LYMPHOCYTES ABSOLUTE AUTO 2.36 K/mm3 (0.84-5.20); LYMPHOCYTES PERCENT AUTO 20 % (21-46); MONOCYTES ABSOLUTE AUTO 1.08 K/mm3 (0.16-1.47); MONOCYTES PERCENT AUTO 9 % (4-13); Mean Corpuscular HGB 30.9 pg (26.0-34.0); Mean Corpuscular HGB Conc 32.7 g/dL (31.5-36.5); Mean Corpuscular Volume 95 fL (80-100); Mean Platelet Volume 10.6 fL (9.1-12.4); NEUTROPHILS ABSOLUTE AUTO 8.07 K/mm3 (1.96-9.15); NEUTROPHILS PERCENT AUTO 69 % (41-73); Platelet Count 190 K/mm3 (150-400); RDW Coefficient Variation 15.4 % (11.7-14.2); RDW Standard Deviation 53.3 fL (35.1-46.3); Red Blood Cell Count 4.66 M/mm3 (4.30-5.90)
[2024-02-29 03:50] LABS: Albumin, Blood 3.1 g/dL (3.4-5.0); Albumin/Globulin Ratio 0.9 (0.8-1.8); Bilirubin, Total 0.8 mg/dL (0.1-1.0); Bun/Creatinine Ratio 20.5 (12.0-20.0); Calcium, Blood 8.7 mg/dL (8.5-10.1); Creatinine, Blood 1.12 mg/dL (0.60-1.20); Globulin, Blood 3.5 g/dL (2.2-4.0); Magnesium, Blood 1.8 mg/dL (1.6-2.4); Potassium, Blood 4.4 mmol/L (3.5-5.5); Total Protein, Blood 6.6 g/dL (6.4-8.2)
[2024-02-29 06:16] VITALS: BP 127/88
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
[2024-02-29 07:47] VITALS: BP 141/92
[2024-02-29] MEDS ORDERED: CefTRIAXone Sodium 1,000 MG in NS 100 ML IV SCH (13:31)
[2024-02-29] MEDS ORDERED: Azithromycin 250 MG Tab PO SCH (14:00)
[2024-02-29] MEDS ORDERED: NS 250 ML IV PRN (14:55)
[2024-02-29 15:48] VITALS: BP 120/80
[2024-02-29 15:48] LABS: Adenovirus Not Detected (NOT DETECT); Coronavirus 229E Not Detected (NOT DETECT); Coronavirus HKU1 Not Detected (NOT DETECT); Coronavirus NL63 Not Detected (NOT DETECT); Coronavirus OC43 Not Detected (NOT DETECT); Human Metapneumovirus Not Detected (NOT DETECT); Human Rhinovirus/Enterovirus Not Detected (NOT DETECT); Influenza A/2009-H1 Not Detected (NOT DETECT); Influenza A/H1 Not Detected (NOT DETECT); Influenza A/H3 Not Detected (NOT DETECT); Influenza B Not Detected (NOT DETECT); Parainfluenza Virus 1 Not Detected (NOT DETECT); SARS-Cov-2 (COVID-19), BioFire Not Detected (NOT DETECT)
[2024-02-29 15:49] LABS: Bordetella pertussis Not Detected (NOT DETECT); Chlamydophila pneumoniae Not Detected (NOT DETECT); Mycoplasma pneumoniae Not Detected (NOT DETECT); Parainfluenza Virus 2 Not Detected (NOT DETECT); Parainfluenza Virus 3 Not Detected (NOT DETECT); Parainfluenza Virus 4 Not Detected (NOT DETECT); Respiratory Syncytial Virus Not Detected (NOT DETECT)
--- NOTE | 2024-02-29 17:51 | NUR ---
SHIFT SUMMARY PT A/Ox4 WITH SOME FORGETFULNESS AND REPETITIVE CONVERSATION AT TIMES. PLEASANT AND COOPERATIVE WITH CARE. PT DENIES PAIN T/O SHIFT. ANTIBIOTICS ADMINISTERED PER EMAR. IV SALINE LOCKED AT THIS TIME, SITE WNL. LUNG SOUNDS CLEAR WITH DIMINISHED BASES. ON 2 L/MIN VIA NC SATING >92% AT REST, TRITATED DOWN FROM 3 L/MIN AT REST. PT IS ROOMAIR AT BASELINE. PT O2 SATURATION LEVELS DID DROP DOWN TO 83% WITH AMBULATION FROM BED TO CHAIR, O2 TURNED UP TO 5 L/MIN AND TOOK APPROX 4-5 MINUTES TO RECOVER AND HAVE SATURATIONS LEVEL MAINTAIN ABOVE 92%. PRECEPTOR, SHABBIR CASEY RN, NOTIFIED MALIAYE VIA PHONE RE PT POOR SATURATION LEVELS WITH AMBULATION. PT SON AT BEDSIDE FOR GOOD PORTION OF DAY. PT CURRENTLY RESTING IN CHAIR WITH CALL LIGHT WITHIN REACH, USES CALL LIGHT APPROPRIATELY.
[2024-02-29 19:22] VITALS: BP 139/78
[2024-02-29] MEDS ORDERED: Apixaban 5 MG Tab PO SCH (21:00)
[2024-02-29] MEDS ORDERED: Metoprolol Tartrate 25 MG Tab PO SCH (21:00)
[2024-02-29] MEDS ORDERED: Pregabalin 50 MG Capsule PO SCH (21:00)
--- NOTE | 2024-03-01 04:29 | NUR ---
SHIFT SUMMARY PATIENT HAD NO ACUTE CHANGES. AXOX 4 AND SBA TO BR. ON 2L O2 NC AND RA BASELINE. SOB W/EXERTION. DENIES CHEST PAIN AND N/V. VSS/AFEBRILE. PIV INTACT. SLEPT MOST OF THE SHIFT. CALL LIGHT IN REACH. BED IN LOWEST POSITION AND ALARM ACTIVATED, IMPULSIVE AT TIMES. WILL CONTINUE TO MONITOR UNTIL DAY SHIFT NURSE ASSUMES CARE.
[2024-03-01 04:52] VITALS: BP 120/75
[2024-03-01 06:39] LABS: BASOPHILS ABSOLUTE AUTO 0.04 K/mm3 (0.00-0.23); BASOPHILS PERCENT AUTO 0 % (0-2); EOSINOPHILS ABSOLUTE AUTO 0.17 K/mm3 (0.00-0.68); EOSINOPHILS PERCENT AUTO 2 % (0-6); Hematocrit 45.4 % (37.0-53.0); Hemoglobin 14.7 g/dL (13.5-17.5); IMMATURE GRAN ABSOLUTE AUTO 0.04 K/mm3 (0.00-0.10); IMMATURE GRAN PERCENT AUTO 0 % (0-1); LYMPHOCYTES ABSOLUTE AUTO 2.54 K/mm3 (0.84-5.20); LYMPHOCYTES PERCENT AUTO 25 % (21-46); MONOCYTES ABSOLUTE AUTO 1.13 K/mm3 (0.16-1.47); MONOCYTES PERCENT AUTO 11 % (4-13); Mean Corpuscular HGB 30.6 pg (26.0-34.0); Mean Corpuscular HGB Conc 32.4 g/dL (31.5-36.5); Mean Corpuscular Volume 94 fL (80-100); Mean Platelet Volume 10.5 fL (9.1-12.4); NEUTROPHILS ABSOLUTE AUTO 6.25 K/mm3 (1.96-9.15); NEUTROPHILS PERCENT AUTO 61 % (41-73); Platelet Count 175 K/mm3 (150-400); RDW Coefficient Variation 15.3 % (11.7-14.2); RDW Standard Deviation 53.5 fL (35.1-46.3); Red Blood Cell Count 4.81 M/mm3 (4.30-5.90); White Blood Cell Count 10.17 K/mm3 (4.00-11.30)
[2024-03-01 07:14] LABS: Albumin, Blood 2.9 g/dL (3.4-5.0); Albumin/Globulin Ratio 0.8 (0.8-1.8); Bun/Creatinine Ratio 18.6 (12.0-20.0); Calcium, Blood 9.3 mg/dL (8.5-10.1); Creatinine, Blood 1.4 mg/dL (0.60-1.20); Globulin, Blood 3.5 g/dL (2.2-4.0); Potassium, Blood 4.4 mmol/L (3.5-5.5); Total Protein, Blood 6.4 g/dL (6.4-8.2)
[2024-03-01 07:32] VITALS: BP 112/92
[2024-03-01 15:48] VITALS: BP 100/76
--- NOTE | 2024-03-01 17:55 | NUR ---
PATIENT A/OX4, [place]. UP INDEPENDENTLY IN ROOM. HOME O2 EVAL DONE TODAY AND PATIENT MAINTAINING SATS >90% ON RA. DENIES ANY PAIN OR DISCOMFORT. SKIN INTACT. CONTINENT OF BOWEL/BLADDER. RECEIVING ABX TO TREAT PNA. POSSIBLE DC TOMORROW.
[2024-03-01 20:07] VITALS: BP 106/65
--- NOTE | 2024-03-02 05:42 | NUR ---
EMAIL MARKETING EXECUTIVE SUMMARY VSS. COOPERATIVE WITH CARE. UP AD LAINA. TOLERATED HS MEDS WELL. HAS BEEN RESTING QUIETLY IN BED WITH FEW INTERRUPTIONS. ABLE TO REPOSITION SELF IN BED WITHOUT ASSIST. CALL LIGHT IN REACH, RAILS UP X 2 AND BED IN LOW POSITION FOR SAFETY. WILL CONTINUE TO MONITOR
[2024-03-02 06:04] VITALS: BP 109/79
[2024-03-02 09:21] VITALS: BP 107/77
[2024-03-02] MEDS ORDERED: AZIT500 PO (11:01)
[2024-03-02] MEDS ORDERED: PREG50 PO (11:02)
[2024-03-02] MEDS ORDERED: CEFP200 PO (11:02)
--- NOTE | 2024-03-02 14:00 | NUR ---
PATIENT DC'D TO HOME WITH SON. DC INSTRUCTIONS AND EDUCATION DISCUSSED WITH PATIENT AND COPY PROVIDED. RX MEDICATIONS FAXED TO [facility]. PATIENT DENIES ANY FURTHER QUESTIONS OR CONCERNS.
== END 2024-03-02 14:24 | disposition home health service (06) | DRG 189 ==
LOC: ER 11:10 → ERHOLD 13:21 → MEDS 02-29 06:05 → ENPENDDIS 03-02 10:36 → MEDS 03-02 14:24
PROVIDERS: Physician Assistant; ADMIT Internal Medicine
DX: J96.01 Acute respiratory failure with hypoxia (principal); J18.9 Pneumonia, unspecified organism; N40.0 Benign prostatic hyperplasia without lower urinary tract symptoms; I10 Essential (primary) hypertension; I48.91 Unspecified atrial fibrillation; M19.90 Unspecified osteoarthritis, unspecified site; M54.9 Dorsalgia, unspecified; G89.29 Other chronic pain; Z85.038 Personal history of other malignant neoplasm of large intestine; Z79.01 Long term (current) use of anticoagulants; Z79.51 Long term (current) use of inhaled steroids; Z79.899 Other long term (current) drug therapy; Z99.81 Dependence on supplemental oxygen; Z89.221 Acquired absence of right upper limb above elbow; Z87.19 Personal history of other diseases of the digestive system; Z98.890 Other specified postprocedural states; Z87.891 Personal history of nicotine dependence; Z90.49 Acquired absence of other specified parts of digestive tract; Z88.8 Allergy status to other drugs, medicaments and biological substances; Z28.21 Immunization not carried out because of patient refusal
CPT/HCPCS: 0202U; 0241U; 36415; 71046; 80053; 83605; 83735; 85025; 87040; 93005; 93010; 94761; 97161; 97530; 99285-25; A9270; J0696; J7030; J7050

== ENCOUNTER 2024-03-14 09:35 | Emergency (ER) | payer MEDICARE, OTHER ==
[~2024-03-14] VITALS: Ht 172.7 cm; Wt 76.9 kg
[~2024-03-14 09:35] MED LIST changes: +AZIT500 PO; +CEFP200 PO; +ELIQUIS5 M3 PO; +PREG50 PO
[2024-03-14 10:11] LABS: BASOPHILS ABSOLUTE AUTO 0.05 K/mm3 (0.00-0.23); BASOPHILS PERCENT AUTO 1 % (0-2); EOSINOPHILS ABSOLUTE AUTO 0.15 K/mm3 (0.00-0.68); EOSINOPHILS PERCENT AUTO 2 % (0-6); Hematocrit 49.4 % (37.0-53.0); IMMATURE GRAN ABSOLUTE AUTO 0.05 K/mm3 (0.00-0.10); IMMATURE GRAN PERCENT AUTO 1 % (0-1); LYMPHOCYTES ABSOLUTE AUTO 2.42 K/mm3 (0.84-5.20); LYMPHOCYTES PERCENT AUTO 24 % (21-46); MONOCYTES ABSOLUTE AUTO 0.94 K/mm3 (0.16-1.47); MONOCYTES PERCENT AUTO 9 % (4-13); Mean Corpuscular HGB 30.8 pg (26.0-34.0); Mean Corpuscular HGB Conc 32.4 g/dL (31.5-36.5); Mean Corpuscular Volume 95 fL (80-100); Mean Platelet Volume 10.5 fL (9.1-12.4); NEUTROPHILS ABSOLUTE AUTO 6.63 K/mm3 (1.96-9.15); NEUTROPHILS PERCENT AUTO 65 % (41-73); Platelet Count 198 K/mm3 (150-400); RDW Coefficient Variation 15.6 % (11.7-14.2); RDW Standard Deviation 54.6 fL (35.1-46.3); White Blood Cell Count 10.24 K/mm3 (4.00-11.30)
[2024-03-14 10:30] LABS: Albumin, Blood 3.6 g/dL (3.4-5.0); Albumin/Globulin Ratio 0.9 (0.8-1.8); Bilirubin, Total 0.9 mg/dL (0.1-1.0); Calcium, Blood 9.9 mg/dL (8.5-10.1); Creatinine, Blood 1.5 mg/dL (0.60-1.20); Globulin, Blood 3.8 g/dL (2.2-4.0); Potassium, Blood 4.7 mmol/L (3.5-5.5); Total Protein, Blood 7.4 g/dL (6.4-8.2)
[2024-03-14] MEDS ORDERED: Furosemide 10 MG / ML 2ML Vial IV ONE (12:00)
[2024-03-14 13:36] LABS: Source, Urine Clean Catch
[2024-03-14 13:49] LABS: Appearance, Urine Clear (Clear); Bilirubin, Urine Neg (Neg); Blood, Urine Neg (Neg); Color, Urine Yellow (P-Yellow); Glucose Qualitative, Urine Neg (Neg); Ketones, Urine Neg (Neg); Leukocyte Esterase, Urine 1+ (Neg); Nitrite, Urine Neg (Neg); Protein, Urine 2+ (Neg); Specific Gravity, Urine 1.025 (1.003-1.022); Urobilinogen, Urine NORM (Normal)
[2024-03-14 14:08] LABS: Bacteria Many /hpf; Spermatozoa Mod /hpf; Squamous Epithelial Cells Rare /hpf (Few)
[2024-03-14 14:45] VITALS: BP 111/81
[2024-03-14] MEDS ORDERED: Lasix20 MG PO (15:35)
[2024-03-14] MEDS ORDERED: Amoxicillin875 MG PO (15:35)
== END 2024-03-14 15:50 | disposition home or self-care (01) ==
LOC: ER 09:35
PROVIDERS: Student in an Organized Health Care Education/Training Program
DX: J81.1 Chronic pulmonary edema (principal); I10 Essential (primary) hypertension; I48.91 Unspecified atrial fibrillation; M19.90 Unspecified osteoarthritis, unspecified site; F17.210 Nicotine dependence, cigarettes, uncomplicated; Z79.899 Other long term (current) drug therapy; Z88.8 Allergy status to other drugs, medicaments and biological substances
CPT/HCPCS: 71046; 80053; 81001; 83880; 84484; 85025; 87086; 96374; 99285-25; J1940

== ENCOUNTER 2024-03-26 11:15 | Emergency (ER) | payer MEDICARE, OTHER ==
[~2024-03-26] VITALS: Ht 172.7 cm; Wt 68.0 kg
[~2024-03-26 11:15] MED LIST changes: +Amoxicillin875 MG PO; +Lasix20 MG PO
[2024-03-26 12:42] LABS: BASOPHILS ABSOLUTE AUTO 0.04 K/mm3 (0.00-0.23); BASOPHILS PERCENT AUTO 1 % (0-2); EOSINOPHILS ABSOLUTE AUTO 0.09 K/mm3 (0.00-0.68); EOSINOPHILS PERCENT AUTO 1 % (0-6); Hematocrit 46.5 % (37.0-53.0); Hemoglobin 15.4 g/dL (13.5-17.5); IMMATURE GRAN ABSOLUTE AUTO 0.04 K/mm3 (0.00-0.10); IMMATURE GRAN PERCENT AUTO 1 % (0-1); LYMPHOCYTES ABSOLUTE AUTO 1.85 K/mm3 (0.84-5.20); LYMPHOCYTES PERCENT AUTO 21 % (21-46); MONOCYTES ABSOLUTE AUTO 0.68 K/mm3 (0.16-1.47); MONOCYTES PERCENT AUTO 8 % (4-13); Mean Corpuscular HGB Conc 33.1 g/dL (31.5-36.5); Mean Corpuscular Volume 94 fL (80-100); Mean Platelet Volume 10.5 fL (9.1-12.4); NEUTROPHILS ABSOLUTE AUTO 6.13 K/mm3 (1.96-9.15); NEUTROPHILS PERCENT AUTO 69 % (41-73); Platelet Count 171 K/mm3 (150-400); RDW Coefficient Variation 15.3 % (11.7-14.2); RDW Standard Deviation 53.1 fL (35.1-46.3); Red Blood Cell Count 4.97 M/mm3 (4.30-5.90); White Blood Cell Count 8.83 K/mm3 (4.00-11.30)
[2024-03-26 13:09] LABS: Albumin, Blood 3.3 g/dL (3.4-5.0); Albumin/Globulin Ratio 0.9 (0.8-1.8); Bilirubin, Total 0.7 mg/dL (0.1-1.0); Calcium, Blood 9.9 mg/dL (8.5-10.1); Creatinine, Blood 1.41 mg/dL (0.60-1.20); Globulin, Blood 3.5 g/dL (2.2-4.0); Potassium, Blood 3.9 mmol/L (3.5-5.5); Total Protein, Blood 6.8 g/dL (6.4-8.2)
[2024-03-26 16:49] VITALS: BP 109/95
[2024-03-26] MEDS ORDERED: Amoxicillin/Clavulanate K 875 MG Tab PO ONE (16:55)
[2024-03-26] MEDS ORDERED: Doxycycline Hyclate 100 MG TAB PO ONE (17:00)
[2024-03-26 17:46] LABS: Influenza A, PCR NEGATIVE (NEGATIVE); Influenza B, PCR NEGATIVE (NEGATIVE); Resp Syncytial Virus, PCR NEGATIVE (NEGATIVE); SARS-Cov-2 (COVID-19) PCR, MMC NEGATIVE (NEGATIVE)
[2024-03-26] MEDS ORDERED: BUME2 PO (19:01)
[2024-03-26] MEDS ORDERED: DOXY100 PO (19:01)
[2024-03-26] MEDS ORDERED: AMOCLA875 PO (19:01)
== END 2024-03-26 19:15 ==
LOC: ER 11:15
PROVIDERS: Emergency Medicine; Physician Assistant
DX: I51.7 Cardiomegaly (principal); J90 Pleural effusion, not elsewhere classified; I10 Essential (primary) hypertension; I48.91 Unspecified atrial fibrillation; M19.90 Unspecified osteoarthritis, unspecified site; Z87.891 Personal history of nicotine dependence; Z79.899 Other long term (current) drug therapy; Z88.8 Allergy status to other drugs, medicaments and biological substances
CPT/HCPCS: 0241U; 71046; 80053; 83880; 85025; A9270